=== PATIENT | female | born 1990 | race Caucasian/White ===

== ENCOUNTER 2022-06-16 10:25 | Outpatient (CLI) | payer OTHER, SELFPAY ==
[2022-06-16 10:29] LABS: HCG Quant, Pregnancy 21761 mIU/mL (1-3)
== END 2022-06-16 10:26 | disposition home or self-care (01) ==
LOC: LBO 10:29
PROVIDERS: PCP Internal Medicine; Visit Provider Obstetrics & Gynecology Gynecology
DX: Z32.01 Encounter for pregnancy test, result positive (principal); Z3A.08 8 weeks gestation of pregnancy
CPT/HCPCS: 36415; 84702